=== PATIENT | female | born 1980 | race Caucasian/White ===

== ENCOUNTER 2024-08-24 11:25 | Emergency (ER) | payer OTHER ==
[~2024-08-24] VITALS: Ht 157.5 cm; Wt 120.2 kg
[2024-08-24 11:35] VITALS: TEMP 98.6
[2024-08-24 11:58] LABS: BASOPHILS % (AUTO) 0.6 % (0.0-2.0); EOSINOPHILS # (AUTO) 0.3 K/uL (0.0-0.7); EOSINOPHILS % (AUTO) 8.3 % (0.0-6.0); HEMATOCRIT 27 % (33-45); LYMPHOCYTES # (AUTO) 0.7 K/uL (0.8-4.8); LYMPHOCYTES % (AUTO) 16.4 % (20.0-44.0); MEAN CORPUSCULAR HEMOGLOBIN 26 PG (26.0-33.0); MEAN CORPUSCULAR HGB CONC 33 g/dl (31.0-36.0); MEAN CORPUSCULAR VOLUME 80 fL (82-100); MONOCYTES # (AUTO) 0.4 K/uL (0.1-1.30); MONOCYTES % (AUTO) 9.8 % (2.0-12.0); NEUTROPHILS # (AUTO) 2.7 K/uL (1.8-8.9); NEUTROPHILS % (AUTO) 64.9 % (43.0-81.0); PLATELET COUNT (AUTO) 138 K/uL (150-450); RED BLOOD CELL COUNT(AUTO) 3.41 MIL/uL (4.0-5.2); RED CELL DISTRIBUTION WIDTH 15.3 % (11.5-15.0); WHITE BLOOD COUNT (AUTO) 4.2 K/uL (4.3-11.0)
[2024-08-24 12:12] LABS: INR 1.01 (0.91-1.10); PARTIAL THROMBOPLASTIN TIME 27.9 SEC (24.3-34.3); PROTHROMBIN TIME 10.7 SECS (9.2-11.1)
[2024-08-24 12:15] LABS: CALCIUM, SERUM 8.7 mg/dL (8.5-10.1); CARBON DIOXIDE 32 mmol/L (21-32); CHLORIDE 102 mmol/L (98-107); CREATININE 0.6 mg/dL (0.6-1.3); GLUCOSE 118 mg/dL (74-106); POTASSIUM 4.1 mmol/L (3.5-5.1); SODIUM SERUM 140 mmol/L (136-145); UREA NITROGEN, BLOOD 8 mg/dL (7-18)
[2024-08-24 12:20] LABS: ALANINE AMINOTRANSFERASE 51 U/L (12-78); ALBUMIN 3.3 g/dL (3.4-5.0); ALKALINE PHOSPHATASE 127 U/L (46-116); ASPARTATE AMINOTRANSFERASE 57 U/L (15-37); BILIRUBIN,DIRECT 0.2 mg/dL (0.0-0.2); BILIRUBIN,TOTAL 0.6 mg/dL (0.2-1.0); TOTAL PROTEIN, SERUM 7.5 g/dL (6.4-8.2)
[2024-08-24] MEDS ORDERED: IV NS 0.9% 250 ML IV ONE (14:53)
[2024-08-24] MEDS ORDERED: IOHEXOL-350 100 ML VIAL IV ONE (14:53)
[2024-08-24] MEDS ORDERED: HYDR25TA4 PO (15:45)
[2024-08-24 16:04] VITALS: BP 125/75; O2SAT 95
== END 2024-08-24 16:03 | disposition home or self-care (01) ==
LOC: ER 11:30
DX: R60.0 Localized edema (principal); R06.02 Shortness of breath; F17.200 Nicotine dependence, unspecified, uncomplicated; F19.10 Other psychoactive substance abuse, uncomplicated; R07.9 Chest pain, unspecified
CPT/HCPCS: 99285; 93970; 71275; 71045; 93005; 85025; 80048; 80076; 85378; 36415; 84484; 85730; J7050; Q9967

== ENCOUNTER 2025-01-13 09:26 | Emergency (ER) | payer OTHER ==
[~2025-01-13] VITALS: Ht 157.5 cm; Wt 120.7 kg
[~2025-01-13 09:26] MED LIST: HYDR25TA4 PO
[2025-01-13] MEDS ORDERED: dexaMETHasone SOD PHOSPHATE 1 ML ONE (09:58)
[2025-01-13] MEDS ORDERED: diphenhydrAMINE HCL 50 MG/ML VIAL ONE (09:58)
[2025-01-13] MEDS ORDERED: KETOROLAC TROMETHAMINE 15 MG/ML VIAL ONE (09:59)
[2025-01-13] MEDS ORDERED: ACETAMINOPHEN ES 500 MG TABLET ONE (09:59)
[2025-01-13] MEDS ORDERED: METOCLOPRAMIDE HCL 10 MG/2 ML VIAL ONE (09:59)
[2025-01-13] MEDS: KETOROLAC TROMETHAMINE 15 MG/ML VIAL IV ONE (10:10)
[2025-01-13] MEDS: ACETAMINOPHEN ES 500 MG TABLET PO ONE (10:10)
[2025-01-13] MEDS: METOCLOPRAMIDE HCL 10 MG/2 ML VIAL IV ONE (10:10)
[2025-01-13] MEDS: dexaMETHasone SOD PHOSPHATE 10 MG/ML VIAL IV ONE (10:10)
[2025-01-13] MEDS: diphenhydrAMINE HCL 50 MG/ML VIAL IV ONE (10:10)
[2025-01-13] MEDS ORDERED: IBUP-1955 PO (11:19)
[2025-01-13 11:43] VITALS: BP 148/87; TEMP 98.2; O2SAT 99
== END 2025-01-13 11:43 | disposition home or self-care (01) ==
LOC: ER 09:42
DX: R51.9 Headache, unspecified (principal); R11.0 Nausea; F17.200 Nicotine dependence, unspecified, uncomplicated; Z79.899 Other long term (current) drug therapy
CPT/HCPCS: 99284; 96374; 96375; J1885; J1100; J1200; J2765